=== PATIENT | male | born 1960 | race Caucasian/White ===

== ENCOUNTER 2020-11-28 13:49 | Emergency (ER) | payer OTHER, MEDICARE ==
[~2020-11-28] VITALS: Ht 188 cm; Wt 126.0 kg
[~2020-11-28 13:49] MED LIST: APAP/HYDRO325 MG/10 PO; ASPIRIN LOW DOS81 M2 PO; EXCEDRI1 OR; LISINOP/HCTZ1 TA1 PO; MELOXICAM7.5 MG PO; MOTRIN800 MG OR; ZOLOFT50 MG PO
[2020-11-28] MEDS ORDERED: LISINOPRIL20 MG PO (14:09)
[2020-11-28 14:29] LABS: GFR > 60 ML/MIN (>=60 (CALC)); GFR FOR AFR.AMER. > 60 ML/MIN (>=60 (CALC))
[2020-11-28 14:35] LABS: HEMATOCRIT 43.9 % (39.0-50.0); HEMOGLOBIN 14.5 g/dl (14.0-18.0); IMMATURE GRANULOCYTES 0.2 % (0.0-5.0); MEAN CORPUSCULAR HGB 29.7 pG CALC (26.0-32.0); NEUT# 2.68 thou/uL (1.82-7.42); RED BLOOD COUNT 4.88 mill/uL (4.70-6.10)
[2020-11-28 14:44] LABS: ACT PARTIAL THROMBO TIME 22.2 SECONDS (20.0-32.5); PROTHROMBIN TIME 10.1 SECONDS (9.0-12.5)
[2020-11-28 14:45] LABS: ALKALINE PHOSPHATASE 81 u/l (38-126); AMYLASE 76 u/l (30-110); ANION GAP 10 (6-22 (CALC)); BUN 19 mg/dL (8-23); BUN/CREATININE RATIO 17 (12-20 (CALC)); CARBON DIOXIDE 26 mmol/l (22-30); CHLORIDE 104 mmol/l (95-108); CREATININE 1.1 mg/dL (0.7-1.3); ETHYL ALCOHOL 0 mg/dl (0-30); GFR > 60 ML/MIN (>=60 (CALC)); GFR FOR AFR.AMER. > 60 ML/MIN (>=60 (CALC)); LIPASE 42 u/l (23-300); POTASSIUM 4.3 mmol/l (3.5-5.1); SGOT/AST 28 u/l (19-48); SODIUM 135 mmol/l (137-146); TOTAL PROTEIN 7.1 g/dL (6.3-8.2)
[2020-11-28 14:46] LABS: BILIRUBIN, TOTAL 0.3 mg/dL (0.0-1.4)
[2020-11-28] MEDS ORDERED: FLEXERIL5 M1 PO (15:54)
[2020-11-28] MEDS ORDERED: HYDROCO/APAP1 TA9 PO (15:54)
[2020-11-28 15:57] LABS: URINE BILIRUBIN - DIPSTICK NEGATIVE (NEGATIVE); URINE BLOOD DIPSTICK TRACE-INTACT (NEGATIVE); URINE CLARITY CLEAR; URINE COLOR YELLOW; URINE GLUCOSE - DIPSTICK NEGATIVE (NEGATIVE); URINE KETONE NEGATIVE (NEGATIVE); URINE LEUK ESTERASE NEGATIVE (Negative); URINE NITRITE - DIPSTICK NEGATIVE (Negative); URINE PH 6.5 (4.5-8.0); URINE PROTEIN - DIPSTICK TRACE mg/dL (NEG-TRACE)
[2020-11-28 16:14] VITALS: BP 168/83
== END 2020-11-28 16:20 | disposition home or self-care (01) | DRG 552 ==
LOC: ED 13:49
DX: S16.1XXA Strain of muscle, fascia and tendon at neck level, initial encounter (principal); S39.012A Strain of muscle, fascia and tendon of lower back, initial encounter; S43.401A Unspecified sprain of right shoulder joint, initial encounter; I10 Essential (primary) hypertension; J44.9 Chronic obstructive pulmonary disease, unspecified; F17.210 Nicotine dependence, cigarettes, uncomplicated; V43.52XA Car driver injured in collision with other type car in traffic accident, initial encounter
CPT/HCPCS: Q9967

== ENCOUNTER 2021-04-20 04:00 | Emergency (ER) | payer OTHER ==
[~2021-04-20] VITALS: Ht 188 cm; Wt 118.0 kg
[~2021-04-20 04:00] MED LIST changes: +FLEXERIL5 M1 PO; +HYDROCO/APAP1 TA9 PO; +LISINOPRIL20 MG PO
[2021-04-20 05:11] LABS: HEMATOCRIT 39.5 % (39.0-50.0); HEMOGLOBIN 13.1 g/dl (14.0-18.0); IMMATURE GRANULOCYTES 0.5 % (0.0-5.0); MEAN CELL VOLUME 90.2 fL CALC (80.0-100.0); MEAN CORPUSCULAR HGB 29.9 pG CALC (26.0-32.0); MEAN CORPUSCULAR HGB CONC 33.2 g/dL CAL (32.0-36.0); NEUT# 6.51 thou/uL (1.82-7.42); RED BLOOD COUNT 4.38 mill/uL (4.70-6.10); RED CELL DISTRI WIDTH 12.4 % (11.5-15.5)
[2021-04-20 05:34] LABS: ALBUMIN 4.2 g/dL (3.2-5.0); ALKALINE PHOSPHATASE 108 u/l (38-126); AMYLASE 75 u/l (30-110); ANION GAP 14 (6-22 (CALC)); BUN 28 mg/dL (8-23); BUN/CREATININE RATIO 23 (12-20 (CALC)); CARBON DIOXIDE 26 mmol/l (22-30); CHLORIDE 101 mmol/l (95-108); CREATININE 1.2 mg/dL (0.7-1.3); GFR > 60 ML/MIN (>=60 (CALC)); GFR FOR AFR.AMER. > 60 ML/MIN (>=60 (CALC)); LIPASE 37 u/l (23-300); SGOT/AST 26 u/l (19-48); SODIUM 137 mmol/l (137-146); TOTAL PROTEIN 7.5 g/dL (6.3-8.2)
[2021-04-20 05:38] LABS: BILIRUBIN, TOTAL 0.7 mg/dL (0.0-1.4)
[2021-04-20 05:46] LABS: MYOGLOBIN 50 ng/mL (0 - 121)
[2021-04-20 06:49] LABS: URINE BILIRUBIN - DIPSTICK NEGATIVE (NEGATIVE); URINE BLOOD DIPSTICK LARGE (NEGATIVE); URINE COLOR YELLOW; URINE GLUCOSE - DIPSTICK NEGATIVE (NEGATIVE); URINE KETONE NEGATIVE (NEGATIVE); URINE PH 5.5 (4.5-8.0); URINE PROTEIN - DIPSTICK NEGATIVE (NEG-TRACE); URINE SPECIFIC GRAVITY >=1.030; URINE UROBILINOGEN - DIPSTICK 0.2 E.U./dL (0.2)
[2021-04-20 06:53] LABS: URINE LEUK ESTERASE NEGATIVE (NEGATIVE); URINE NITRITE - DIPSTICK NEGATIVE (Negative)
[2021-04-20 06:57] LABS: URINE RBC 50-100 RBC/hpf (0-5)
[2021-04-20 06:58] LABS: URINE BACTERIA MODERATE hpf; URINE EPITHELIAL CELLS MODERATE EPI/hpf (0-FEW)
[2021-04-20] MEDS ORDERED: TAMSULOSIN0.4 MG PO (07:01)
[2021-04-20] MEDS ORDERED: LORTAB 1010 MG PO (07:01)
[2021-04-20 07:28] VITALS: BP 104/54
== END 2021-04-20 07:31 | disposition home or self-care (01) | DRG 694 ==
LOC: ED 04:00
PROVIDERS: Emergency Medicine
DX: N13.2 Hydronephrosis with renal and ureteral calculous obstruction (principal); I10 Essential (primary) hypertension; J44.9 Chronic obstructive pulmonary disease, unspecified; F17.210 Nicotine dependence, cigarettes, uncomplicated; Z86.73 Personal history of transient ischemic attack (TIA), and cerebral infarction without residual deficits
CPT/HCPCS: Q9967

== ENCOUNTER 2021-08-21 10:16 | Emergency (ER) | payer OTHER ==
[~2021-08-21] VITALS: Ht 188 cm; Wt 113.6 kg
[2021-08-21] VITALS (7 sets, daily range): BP systolic 100–151; BP diastolic 57–93
[~2021-08-21 10:16] MED LIST changes: +LORTAB 1010 MG PO; +TAMSULOSIN0.4 MG PO
[2021-08-21] MEDS ORDERED: BACLOFEN10 MG PO (10:32)
[2021-08-21 11:50] LABS: GFR > 60 ML/MIN (>=60 (CALC)); GFR FOR AFR.AMER. > 60 ML/MIN (>=60 (CALC))
[2021-08-21 11:56] LABS: IMMATURE GRANULOCYTES 0.2 % (0.0-5.0); MEAN CELL VOLUME 88.6 fL CALC (80.0-100.0); MEAN CORPUSCULAR HGB 28.9 pG CALC (26.0-32.0); MEAN CORPUSCULAR HGB CONC 32.6 g/dL CAL (32.0-36.0); NEUT# 4.7 thou/uL (1.82-7.42); RED BLOOD COUNT 5.19 mill/uL (4.70-6.10); RED CELL DISTRI WIDTH 12.6 % (11.5-15.5)
[2021-08-21 12:15] LABS: ALBUMIN 4.2 g/dL (3.2-5.0); ALKALINE PHOSPHATASE 102 u/l (38-126); ANION GAP 12 (6-22 (CALC)); BILIRUBIN, TOTAL 0.8 mg/dL (0.0-1.4); BUN 17 mg/dL (8-23); BUN/CREATININE RATIO 15 (12-20 (CALC)); CARBON DIOXIDE 27 mmol/l (22-30); CHLORIDE 104 mmol/l (95-108); CREATININE 1.1 mg/dL (0.7-1.3); GFR > 60 ML/MIN (>=60 (CALC)); GFR FOR AFR.AMER. > 60 ML/MIN (>=60 (CALC)); LIPASE 21 u/l (23-300); POTASSIUM 4.4 mmol/l (3.5-5.1); SGOT/AST 26 u/l (19-48); SODIUM 138 mmol/l (137-146); TOTAL PROTEIN 7.4 g/dL (6.3-8.2)
[2021-08-21] MEDS ORDERED: MOTRIN400 MG/TAB PO (12:54)
[2021-08-21] MEDS ORDERED: VOLTAREN1%GEL TOP (12:54)
[2021-08-21] MEDS ORDERED: FLEXERIL5 M1 PO (12:54)
== END 2021-08-21 13:11 | disposition home or self-care (01) | DRG 552 ==
LOC: ED 10:16
PROVIDERS: Family Medicine
DX: M54.50 Low back pain, unspecified (principal); I10 Essential (primary) hypertension; J44.9 Chronic obstructive pulmonary disease, unspecified; F17.210 Nicotine dependence, cigarettes, uncomplicated; Z86.73 Personal history of transient ischemic attack (TIA), and cerebral infarction without residual deficits
CPT/HCPCS: Q9967

== ENCOUNTER 2021-12-01 19:03 | Emergency (ER) | payer OTHER ==
[~2021-12-01] VITALS: Ht 188 cm; Wt 104.5 kg
[~2021-12-01 19:03] MED LIST changes: +BACLOFEN10 MG PO; +MOTRIN400 MG/TAB PO; +VOLTAREN1%GEL TOP
[2021-12-01 19:31] VITALS: BP 142/80
[2021-12-01 19:47] VITALS: BP 157/70
[2021-12-01] MEDS ORDERED: PENICILLN VK500 MG PO (19:56)
[2021-12-01] MEDS ORDERED: PERCOCET 5/325M1 TAB PO (19:56)
[2021-12-01 20:01] VITALS: BP 117/64
== END 2021-12-01 20:10 | disposition home or self-care (01) | DRG 159 ==
LOC: ED 19:03
PROC: 0C960ZZ Drainage of Lower Gingiva, Open Approach (ICD-10-PCS; principal; 2021-12-01)
DX: K04.7 Periapical abscess without sinus (principal); K02.9 Dental caries, unspecified; I10 Essential (primary) hypertension; J44.9 Chronic obstructive pulmonary disease, unspecified; F17.200 Nicotine dependence, unspecified, uncomplicated; Z86.73 Personal history of transient ischemic attack (TIA), and cerebral infarction without residual deficits